=== PATIENT | female | born 1955 | race Caucasian/White ===

== ENCOUNTER 2017-07-03 19:47 | Emergency (ER) | payer MEDICAID ==
[~2017-07-03] VITALS: Ht 165.1 cm; Wt 81.6 kg
[2017-07-03 20:29] VITALS: BP 142/66
== END 2017-07-03 20:56 | disposition left against medical advice (07) ==
LOC: ER 19:47
DX: R51 Headache (principal); M54.2 Cervicalgia; Z53.21 Procedure and treatment not carried out due to patient leaving prior to being seen by health care provider

== ENCOUNTER 2021-06-28 00:26 | Emergency (ER) | payer MEDICARE, MEDICAID ==
[~2021-06-28] VITALS: Ht 165.1 cm; Wt 81.6 kg
[2021-06-28] MEDS ORDERED: IOHEXOL 300 MG/ML 100ML BOTTLE IJ ONE (01:32)
[2021-06-28 03:09] LABS: Basophils # (auto) 0.1 10 ^3/uL (0-0.2); Eosinophils # (auto) 0.7 10 ^3/uL (0-0.8); Eosinophils % (auto) 8.7 % (0.0-7.0); Hematocrit 36.1 % (36.0-46.0); Hemoglobin 12.3 g/dL (12.2-16.2); Lymphocytes # (auto) 2.2 10 ^3/uL (0.4-5.4); Lymphocytes % (auto) 26.4 % (10.0-50.0); Mean Corpuscular Hemoglobin 31.3 pg (28.0-32.0); Mean Corpuscular Hgb Conc. 34.1 g/dL (32.0-36.0); Mean Corpuscular Volume 91.9 fL (80.0-100.0); Monocytes # (auto) 0.7 10 ^3/uL (0-1.3); Neutrophils # (auto) 4.7 10 ^3/uL (1.6-8.6); Neutrophils % (auto) 55.9 % (37.0-80.0); Red Blood Cells 3.93 10^6/uL (4.0-5.20); White Blood Cell 8.4 10^3/uL (4.4-10.8)
[2021-06-28 03:22] LABS: Albumin 3.7 g/dL (3.4-5.0); Calcium 8.8 mg/dL (8.5-10.1); Potassium 3.9 mmol/L (3.5-5.1)
[2021-06-28 03:25] LABS: BUN/Creatinine Ratio 22.6; Bilirubin, Total 0.4 mg/dL (0.2-1.0); Total Protein 7.1 g/dL (6.4-8.2)
[2021-06-28 03:28] LABS: Urine Bacteria NONE SEEN /hpf (None Seen); Urine Blood Negative /uL (Negative); Urine Specific Gravity 1.017 (1.001-1.035); Urine WBC 2 /hpf (0 - 5)
[2021-06-28] MEDS ORDERED: CIPR500T4 PO (05:38)
[2021-06-28 07:45] VITALS: BP 138/68
== END 2021-06-28 07:48 | disposition home or self-care (01) ==
LOC: ER 00:26
DX: N39.0 Urinary tract infection, site not specified (principal); K57.30 Diverticulosis of large intestine without perforation or abscess without bleeding
CPT/HCPCS: 36415; 74177; 80053; 81001; 83605; 83690; 84484; 85025; 99285; Q9967

== ENCOUNTER 2023-07-25 08:06 | Inpatient (IN) | payer MEDICARE, MEDICAID ==
[2023-07-23 09:29] LABS: Urine Bacteria None Seen /hpf (None Seen)
[2023-07-23 09:44] LABS: Basophils # (auto) 0 10 ^3/uL (0-0.2); Basophils % (auto) 0.7 % (0.0-2.0); Eosinophils # (auto) 0.3 10 ^3/uL (0-0.8); Hematocrit 37.8 % (36.0-46.0); Hemoglobin 12.6 g/dL (12.2-16.2); Lymphocytes # (auto) 1.7 10 ^3/uL (0.4-5.4); Mean Corpuscular Hemoglobin 29.9 pg (28.0-32.0); Mean Corpuscular Hgb Conc. 33.2 g/dL (32.0-36.0); Mean Corpuscular Volume 89.9 fL (80.0-100.0); Monocytes # (auto) 0.7 10 ^3/uL (0-1.3); Monocytes % (auto) 10.1 % (0.0-12.0); Neutrophils # (auto) 4.4 10 ^3/uL (1.6-8.6); Neutrophils % (auto) 61.2 % (37.0-80.0); Red Cell Distribution Width 14.3 % (11.8-14.3); White Blood Cell 7.1 10^3/uL (4.4-10.8)
[2023-07-23 10:00] LABS: Urine Blood Negative /uL (Negative); Urine Clarity Clear (Clear); Urine Color Yellow (Yellow); Urine Protein, UAD Negative (Negative); Urine Specific Gravity 1.022 (1.001-1.035); Urine Urobilinogen Normal (Negative); Urine WBC 1 /hpf (0 - 5)
[2023-07-23 10:01] LABS: INR 0.97 (0.9-1.15); Partial Thromboplastin Time 26.2 SEC (24.5-34.5); Prothrombin Time 10.3 sec (9.3-11.8)
[2023-07-23 10:30] LABS: Alanine Aminotransferase 14 U/L (7-40); Albumin 4.3 g/dL (3.2-4.8); Alkaline Phosphatase 112 U/L (46-116); Anion Gap 4 (5-15); Aspartate Aminotransferase 12 U/L (13-40); BUN/Creatinine Ratio 19.7 (10.0-20.0); Bilirubin, Total 0.3 mg/dL (0.2-1.0); Blood Urea Nitrogen 12 mg/dL (9-23); Calcium 9.5 mg/dL (8.5-10.1); Carbon Dioxide 31 mmol/L (20-30); Chloride 104 mmol/L (98-107); Glucose 108 mg/dL (74-106); Potassium 3.9 mmol/L (3.5-5.1); Sodium 139 mmol/L (136-145); Total Protein 7.2 g/dL (5.7-8.2)
[~2023-07-25] VITALS: Ht 165.1 cm; Wt 81.4 kg
[~2023-07-25 08:06] MED LIST: BACL10TA PO; GABA-1308 PO; LOVA40TA72 PO; SERT-377 PO
[2023-07-25] MEDS ORDERED: MIDAZOLAM HCL 2MG/2ML 2ml VIAL (1mg/ml) ONE (08:29)
[2023-07-25] MEDS ORDERED: fentaNYL CITRATE 100 MCG/2 ML VL ONE (08:29)
[2023-07-25] MEDS ORDERED: MORPHINE SULF PF 5 MG/10 ML VIAL ONE (08:29)
[2023-07-25] MEDS ORDERED: KETAMINE 50mg/ML 1ml syringe ONE (08:29)
[2023-07-25] MEDS ORDERED: ONDANSETRON HCL 4 MG/2 ML VIAL ONE (08:30)
[2023-07-25] MEDS ORDERED: DexAMETHasone SOD PHOS 10MG/1ML VIAL INJ ONE (08:30)
[2023-07-25] MEDS ORDERED: KETOROLAC TROMETH 30 MG/ML 1ML VIAL ONE (08:30)
[2023-07-25] MEDS ORDERED: GLYCOPYRROLATE 0.2 MG/ML 1ML VIAL ONE (08:30)
[2023-07-25] MEDS ORDERED: PROPOFOL 10 MG/ML 20 ML IV ONE (08:30)
[2023-07-25] MEDS: TRANEXAMIC ACID 20 ML ONE (09:17)
[2023-07-25] MEDS: BUPIVACAINE HCL 50 ML ONE (09:17)
[2023-07-25] MEDS: VANCOMYCIN HCL 1000 MG VL ONE (09:19)
[2023-07-25] MEDS: ROPIVACAINE 0.5% (5MG/ML) 20ML AMPULE IJ ONE (11:28)
[2023-07-25] MEDS ORDERED: ONDANSETRON HCL 4 MG/2 ML VIAL IV PRN (11:45)
[2023-07-25] MEDS: ACETAMINOPHEN 325 MG TAB PO SCH (12:00)
[2023-07-25 12:01] VITALS: O2SAT 100
[2023-07-25] MEDS ORDERED: MEPERIDINE HCL (25 MG/ML) 1ML VIAL IV PRN (12:15)
[2023-07-25] MEDS: ONDANSETRON HCL 4 MG/2 ML VIAL IV ONE (12:15)
[2023-07-25] MEDS: HYDROmorphone HCL 2 MG/ML VL/or syr ONE (12:15)
[2023-07-25] MEDS ORDERED: ACETAMINOPHEN IV 1000 MG/100ML (10MG/ML) IV PRN (12:15)
[2023-07-25] MEDS: HYDROmorphone HCL 2 MG/ML VL/or syr IV PRN (12:18)
[2023-07-25] MEDS: BACLOFEN 10 MG TAB PO SCH (14:00)
[2023-07-25] MEDS: ceFAZolin 2 GM/D5W50ml 50 ML IV SCH ×2 (14:00→18:07)
[2023-07-25 15:45] VITALS: BP 147/81; PULSE 75; RESP 20; TEMP 97.9; O2SAT 99
[2023-07-25 17:00] VITALS: BP 158/75; PULSE 75; RESP 17; TEMP 97.5; O2SAT 96
[2023-07-25] MEDS: oxyCODONE HCL 5MG TAB PO PRN (18:06)
[2023-07-25] MEDS: SODIUM CHLORIDE 0.9% 1,000 ML IV SCH (18:07)
[2023-07-25 21:00] VITALS: BP 131/54; PULSE 90; RESP 22; TEMP 98.3; O2SAT 97
[2023-07-25] MEDS: PREGABALIN 25 MG CAP PO SCH (21:18)
[2023-07-25] MEDS: PRAVASTATIN SODIUM 20 MG TAB PO SCH (21:18)
[2023-07-26 01:00] VITALS: BP 120/63; PULSE 79; RESP 20; TEMP 98.3; O2SAT 95
[2023-07-26 05:00] VITALS: BP 139/53; PULSE 82; RESP 20; TEMP 97.9; O2SAT 94
[2023-07-26 06:57] LABS: Basophils # (auto) 0 10 ^3/uL (0-0.2); Basophils % (auto) 0.2 % (0.0-2.0); Eosinophils # (auto) 0 10 ^3/uL (0-0.8); Eosinophils % (auto) 0.3 % (0.0-7.0); Hematocrit 32.3 % (36.0-46.0); Hemoglobin 10.6 g/dL (12.2-16.2); Lymphocytes # (auto) 1.7 10 ^3/uL (0.4-5.4); Lymphocytes % (auto) 14.1 % (10.0-50.0); Mean Corpuscular Hemoglobin 30.1 pg (28.0-32.0); Mean Corpuscular Hgb Conc. 32.7 g/dL (32.0-36.0); Monocytes # (auto) 1.8 10 ^3/uL (0-1.3); Monocytes % (auto) 15.4 % (0.0-12.0); Neutrophils # (auto) 8.2 10 ^3/uL (1.6-8.6); Nucleated Red Blood Cells % 0.1 %; Red Blood Cells 3.51 10^6/uL (4.0-5.20); Red Cell Distribution Width 14.5 % (11.8-14.3); White Blood Cell 11.7 10^3/uL (4.4-10.8)
[2023-07-26 07:11] LABS: Anion Gap 6 (5-15); Carbon Dioxide 26 mmol/L (20-30); Chloride 108 mmol/L (98-107); Sodium 140 mmol/L (136-145)
[2023-07-26 07:12] LABS: Calcium 8.9 mg/dL (8.5-10.1)
[2023-07-26 07:17] LABS: BUN/Creatinine Ratio 12.7 (10.0-20.0); Blood Urea Nitrogen 10 mg/dL (9-23); Glucose 122 mg/dL (74-106)
[2023-07-26 09:00] VITALS: BP 138/51; PULSE 90; RESP 18; TEMP 98.1; O2SAT 94
[2023-07-26] MEDS: APIXABAN 2.5 MG TAB PO SCH (09:25)
[2023-07-26] MEDS: SERTRALINE HCL 50 MG TAB PO SCH (09:25)
[2023-07-26 13:00] VITALS: BP 128/41; PULSE 80; RESP 20; TEMP 97.9; O2SAT 97
[2023-07-26] MEDS ORDERED: TRAM50TA2 PO (14:00)
[2023-07-26] MEDS ORDERED: VALA1TAB PO (14:00)
[2023-07-26] MEDS: oxyCODONE HCL 5MG TAB PO PRN (15:31)
[2023-07-26 17:00] VITALS: BP 133/63; PULSE 83; RESP 16; TEMP 98.1; O2SAT 98
[2023-07-26 21:00] VITALS: BP 125/68; PULSE 83; RESP 20; TEMP 97.9; O2SAT 96
[2023-07-27 01:00] VITALS: BP 134/82; PULSE 92; RESP 18; TEMP 99.1; O2SAT 93
[2023-07-27 05:00] VITALS: BP 155/61; PULSE 90; RESP 18; TEMP 98.9; O2SAT 95
[2023-07-27 08:30] VITALS: BP 134/57; PULSE 83; RESP 20; TEMP 98.1; O2SAT 92
[2023-07-27 13:02] VITALS: BP 126/56; PULSE 91; RESP 20; TEMP 98.4; O2SAT 90
[2023-07-27 15:02] VITALS: BP 126/56; PULSE 91; RESP 20; TEMP 98.4; O2SAT 90
== END 2023-07-27 16:40 | disposition home or self-care (01) | DRG 470 ==
LOC: SUR 08:06 → OVERFLOW 11:39 → WEST WING 17:23
PROVIDERS: ADMIT Orthopaedic Surgery; ATTEND Orthopaedic Surgery
PROC: 0SRB06Z Replacement of Left Hip Joint with Oxidized Zirconium on Polyethylene Synthetic Substitute, Open Approach (ICD-10-PCS; principal; 2023-07-25 09:45)
DX: M16.12 Unilateral primary osteoarthritis, left hip (principal); G89.18 Other acute postprocedural pain; Z79.899 Other long term (current) drug therapy
CPT/HCPCS: 36415; 72170; 73501; 80048; 80053; 81001; 85025; 85610; 85730; 86850; 86900; 86901; 97110; 97116; 97163; 97530; G0378; J1100; J1885; J2250; J2405; J2704; J3490